=== PATIENT | female | born 1995 | race Two or more races ===

== ENCOUNTER 2017-04-20 22:43 | Emergency (ER) | payer BC ==
[~2017-04-20 22:43] MED LIST: ANTIVERT25 M1 PO; MECLIZINE HCL25 M3 PO; PROMETHAZINE HC25 M3 PO; SPRINTEC 28 DA1 EACH PO; TYLENOL EXTRA500 M1 PO
[2017-04-20] MEDS ORDERED: NO HOME MEDICATION XX (23:02)
[2017-04-20 23:41] LABS: URINE BILIRUBIN NEGATIVE (NEG); URINE BLOOD MODERATE (NEG); URINE GLUCOSE (UA) NEGATIVE (NEG); URINE KETONE NEGATIVE (NEG); URINE LEUKOCYTE ESTERASE NEGATIVE (NEG); URINE NITRITE NEGATIVE (NEG); URINE PROTEIN NEGATIVE (NEG)
[2017-04-20 23:52] LABS: URINE APPEARANCE CLEAR; URINE COLOR YELLOW
[2017-04-21 00:03] LABS: BASO % 0.4 % (0-2); EOSINOPHIL ABSOLUTE COUNT 0.2 tho/cmm (0.0-0.7); HCT-HEMATOCRIT 37.9 % (34.0-49.0); HGB-HEMOGLOBIN 12.5 gm/dl (12.0-15.5); IMMATURE GRANULOCYTES ABSOLUTE 0.01 tho/cmm (0-0.03); IMMATURE GRANULOCYTES PERCENT 0.1 % (0-0.3); LYMPH % 40.8 % (20-45); LYMPH ABSOLUTE COUNT 3.3 tho/cmm (0.8-4.5); MCH (MEAN CORPUSCULAR HGB) 26.2 pg (28.0-32.0); MCV (MEAN CELL VOLUME) 79.5 fl (82.0-96.0); MEAN PLATELET VOLUME 9.7 cmc (9.4-12.4); MONO % 9.7 % (0-12); MONOCYTE ABSOLUTE COUNT 0.8 tho/cmm (0.0-1.2); NEUTROPHIL ABSOLUTE COUNT 3.8 tho/cmm (1.6-8.0); NEUTROPHIL-AUTOMATED 3.8 tho/cmm (1.6-8.0); PLATELET COUNT 241 tho/cmm (150-450); RED BLOOD COUNT 4.77 mil/cmm (4.00-5.20); RED CELL DISTRIBUTION WIDTH 13.1 % (12.4-16.4); WHITE BLOOD COUNT 8.1 tho/cmm (4.0-10.0)
[2017-04-21 00:23] LABS: ALB/GLOB RATIO 0.9 (0.8-2.0); ALKALINE PHOSPHATASE 42 U/L (33-138); ALT/SGPT 34 U/L (12-78); BILIRUBIN,TOTAL 0.5 mg/dl (0-1.5); BLOOD UREA NITROGEN 10 mg/dl (6-24); CALCIUM 7.4 mg/dl (8.5-10.5); CARBON DIOXIDE-VENOUS 24 mmol/L (22-32); CHLORIDE 107 mmol/l (96-110); CREATININE 0.58 mg/dl (0.50-1.10); GLUCOSE 86 mg/dL (70-110); LIPASE 166 U/L (73-393); SODIUM 139 mmol/L (135-145); eGFR VALUE FOR BLACK >90 mL/Min
[2017-04-21 00:33] LABS: ANION GAP 12 mmol/L (0-20); AST/SGOT 26 U/L (10-40); POTASSIUM 3.9 mmol/L (3.7-5.1)
== END 2017-04-21 01:28 ==
LOC: EDMED 22:43
PROVIDERS: Emergency Medicine
DX: R10.11 Right upper quadrant pain (principal)
CPT/HCPCS: J1885